=== PATIENT | male | born 2000 | race Two or more races ===

== ENCOUNTER 2019-09-04 18:15 | Emergency (ER) | payer MEDICAID, OTHER ==
[~2019-09-04] VITALS: Ht 170.2 cm; Wt 62.6 kg
[2019-09-04 19:55] VITALS: BP 128/90
[2019-09-04] MEDS ORDERED: LIDOCAINE 1% HCL (LOCAL ANESTH.) INJ 20ML MDV IJ ONE (20:00)
[2019-09-04] MEDS ORDERED: NEOMYCIN-BACITRACIN-POLYM UNITDOSE PKG TOP OINT TOP ONE (20:00)
== END 2019-09-04 18:27 | disposition home or self-care (01) ==
LOC: ER 18:15
DX: S81.811A Laceration without foreign body, right lower leg, initial encounter (principal); W17.81XA Fall down embankment (hill), initial encounter; Y93.01 Activity, walking, marching and hiking; Y92.89 Other specified places as the place of occurrence of the external cause; Y99.8 Other external cause status
CPT/HCPCS: 12002; 73590; 99283; J2001

== ENCOUNTER 2022-12-13 21:08 | Emergency (ER) | payer MEDICAID ==
[~2022-12-13] VITALS: Ht 170.2 cm; Wt 68.2 kg
[2022-12-14] MEDS ORDERED: ACET-1158 PO (00:52)
[2022-12-14] MEDS ORDERED: CEPH-510 PO (00:52)
[2022-12-14 01:28] VITALS: BP 121/78
== END 2022-12-14 01:49 | disposition home or self-care (01) ==
LOC: ER 21:08
DX: S01.112A Laceration without foreign body of left eyelid and periocular area, initial encounter (principal); W18.09XA Striking against other object with subsequent fall, initial encounter; Y93.01 Activity, walking, marching and hiking; Y92.89 Other specified places as the place of occurrence of the external cause; Y99.8 Other external cause status
CPT/HCPCS: 12013; 70486